=== PATIENT | male | born 1950 | race Two or more races ===

== ENCOUNTER → 2022-05-11 | Outpatient (CLI) | payer BC ==
[~2022-05-11] VITALS: Ht 175.3 cm; Wt 106.6 kg
[~2022-05-11] MED LIST: ATEN-60 PO; BUDE1AER6 IN; CHOL20004 PO; CINN500T PO; ESCI10TA PO; EZET10TA22 PO; FURO20TA3 PO; GABA300C10 PO; LOSA25TA38 PO; MELO1TAB73 PO; OMEG100078 PO; ROSU40TA PO; ceFAZolin 1GM/50ML 100 ML IV ONE
== END | disposition home or self-care (01) ==
LOC: SUR 08:39 → EDSTATUS 10:15
PROVIDERS: ATTEND Orthopaedic Surgery
DX: Z20.822 Contact with and (suspected) exposure to COVID-19 (principal)
CPT/HCPCS: 36600; 82805; 86850; 86900; 86901; J0690; U0003

== ENCOUNTER 2024-02-10 19:34 | Emergency (ER) | payer BC ==
[~2024-02-10] VITALS: Ht 177.8 cm; Wt 210.0 kg
[~2024-02-10 19:34] MED LIST changes: +GABA-1250 PO; -GABA300C10 PO; +LOSA-533 PO; -LOSA25TA38 PO; -MELO1TAB73 PO; +MELO7.5T7 PO; +OMEG-20 PO; -OMEG100078 PO; -ROSU40TA PO; +ROSU40TA81 PO; -ceFAZolin 1GM/50ML 100 ML IV ONE
--- NOTE | 2024-02-10 19:52 | ED.PDOC ---
Altered Mental Status HPI Comments 73-year-old male brought in by EMS presents with a chief complaint of ALOC s/p alcohol use today. Patient endorses drinking "couple beers and cristi" and had a possible unwitnessed fall at home. Patients family found patient on the floor with incontinence to urine. Patient cannot recall the events that led to him on the floor, but does remember drinking. EMS placed patient in C-collar as a precaution. Patient is answering questions appropriately. Chief Complaint: ETOH Time Seen by MD: 19:48 Reviewed Notes: Radiology Clerk Notes, Medications, Allergies Allergies: Coded Allergies: NO KNOWN ALLERGIES (Unverified , 05/09/22) Home Meds Reported Medications Ezetimibe (Zetia) 10 Mg Tab, 10 MG PO DAILY, TAB 05/09/22 Cinnamon Bark (Cinnamon) 500 Mg Tab, 1000 MG PO DAILY, #2 TAB 05/09/22 [place]-3 Fatty Acids (FISH OIL) 1,000 Mg Cap, 1000 MG PO DAILY, CAP 05/09/22 Cholecalciferol (D3) 50 Mcg Cap, 50 MCG PO DAILY, CAP 05/09/22 Dzslutjvox-Xqhjxounudijmu-[place]vau (Breztri Aerosphere 160-9-4.8 Mcg/Act) 1 Aer Aer, 2 PUFF IN BID PRN for prn, AER 05/09/22 Meloxicam (Meloxicam) 7.5 Mg Tab, 7.5 MG PO DAILY, TAB 05/09/22 Gabapentin (Gabapentin) 300 Mg Cap, 300 MG PO TID, CAP 05/09/22 Losartan Potassium (Losartan Potassium) 25 Mg Tab, 25 MG PO, #0.5 TAB 05/09/22 Escitalopram Oxalate (Lexapro) 10 Mg Tab, 10 MG PO DAILY, TAB 05/09/22 Atenolol (Atenolol) 25 Mg Tab, 25 MG PO DAILY, #0.5 TAB 05/09/22 Rosuvastatin Calcium (Crestor) 40 Mg Tab, 40 MG PO DAILY, TAB 05/09/22 Furosemide (Furosemide) 20 Mg Tab, 20 MG PO DAILY, #0.5 TAB 05/09/22 Information Source: Emergency Med Personnel Mode of Arrival: EMS Severity: Unable to Care for Self Timing: Hours Duration: Since onset Prehospital treatment: C-Collar Quality: Change in Behavior, Confusion Recent: Other (ALCOHOL USE) History of: None Past Medical History PAST MEDICAL HISTORY: CHF, HTN Surgical History: Denies all surgeries Family History Family History: Reviewed,noncontributory to illness Social History Smoker: Non-Smoker Alcohol: Heavy Drugs: Denies Drug Use Lives In: Home Constitutional: denies: chills, diaphoresis, fatigue, fever, malaise, sweats, weakness, others EENTM: denies: blurred vision, double vision, ear bleeding, ear discharge, ear drainage, ear pain, ear ringing, eye pain, eye redness, hearing loss, mouth pain, mouth swelling, nasal discharge, nose bleeding, nose congestion, nose pain, photophobia, tearing, throat pain, throat swelling, voice changes, others Respiratory: denies: cough, hemoptysis, orthopnea, SOB at rest, shortness of breath, SOB with excertion, stridor, wheezing, others Cardiovascular: denies: chest pain, dizzy spells, diaphoresis, Dyspnea on exertion, edema, irregular heart beat, left arm pain, lightheadedness, palpitations, PND, syncope, others Gastrointestinal: denies: abdomen distended, abdominal pain, blood streaked bowels, constipated, diarrhea, dysphagia, difficulty swallowing, hematemesis, melena, nausea, poor appetite, poor fluid intake, rectal bleeding, rectal pain, vomiting, others Genitourinary: denies: burning, dysuria, flank pain, frequency, hematuria, incontinence, penile discharge, penile sore, pain, testicle pain, testicle swelling, urgency, others Neurological: denies: dizziness, fainting, headache, left sided numbness, left sided weakness, numbness, paresthesia, pre-existing deficit, right sided numbness, right sided weakness, seizure, speech problems, tingling, tremors, weakness, others Musculoskeletal: denies: back pain, gout, joint pain, joint swelling, muscle pain, muscle stiffness, neck pain, others Integumetry: denies: bruises, change in color, change in hair/nails, dryness, laceration, lesions, lumps, rash, wounds, others Allergic/Immunocompromised: denies: Difficulty Healing, Frequent Infections, Hives, Itching, others Hematologic/Lymphatic: denies: anemia, blood clots, easy bleeding, easy bruising, swollen glands, others Endocrine: denies: excessive hunger, excessive sweating, excessive thirst, excessive urination, flushing, intolerance to cold, intolerance to heat, unexplained weight gain, unexplained weight loss, others Psychiatric: denies: anxiety, bipolar disorder, depression, hopeless, panic disorder, schizophrenia, sleepless, suicidal, others Unable to Obtain due to: Altered Mental Status All Other Systems: Reviewed and Negative Physical Exam General Appearance: No Apparent Distress, Normal HEENT: Normal ENT Inspection, Pharynx Normal, TMs Normal Neck: Full Range of Motion, Non-Tender, Normal, Normal Inspection Respiratory: Chest Non-Tender, Lungs Clear, No Accessory Muscle Use, No Respiratory Distress, Normal Breath Sounds Cardiovascular: No Edema, No JVD, No Murmur, No Gallop, Normal Peripheral Pulses, Regular Rate/Rhythm Breast Exam: Deferred Gastrointestinal: No Organomegaly, Non Tender, No Pulsatile Mass, Normal Bowel Sounds, Soft Genitalia: Deferred Pelvic: Deferred Rectal: Deferred Extremities: No calf tenderness, Normal capillary refill, Normal inspection, Normal range of motion, Non-tender, No pedal edema Musculoskeletal : Apperance: Normal Neurologic: Alert, packaging operator II-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 Was a procedure done?: No X-Ray, Labs, Meds, VS Vital Signs Date Time Temp Pulse Resp B/P (MAP) Pulse Ox O2 Delivery O2 Flow Rate FiO2 02/10/24 19:48 97.6 63 17 122/64 (83) 95 02/10/24 19:38 64 Lab Test 02/10/24 20:03 Range/Units Plasma/Serum Blood Alcohol 225.2 H <10 mg/dL Time of 1ST Reevaluation: 20:18 Reevaluation 1ST: Unchanged Patient Education/Counseling: Diagnosis, Treatment, Prognosis Family Education/Counseling: No Family Present Critical Care Note Critical Care Time?: No Stability Stability form required: No I personally scribed for AAKASH RICHARD MD ([email or web address]) on 02/10/24 at 19:52. Electronically submitted by Gamaliel Hugo ([email or web address]). I personally scribed for AAKASH RICHARD MD ([email or web address]) on 02/10/24 at 22:20. Electronically submitted by Gamaliel Hugo ([email or web address]). AAKASH RICHARD MD Feb 10, 2024 19:52
--- NOTE | 2024-02-10 21:26 | DVH ---
EXAM: CT CERVICAL WITHOUT CONTRAST INDICATION: fall EXAM DATE: 02/10/2024 08:36 PM COMPARISON: None TECHNIQUE: Multiple axial CT images of the cervical spine were obtained using bone algorithm. Axial a nd coronal reformatting was done. Bone and soft tissue windows were reviewed. Radiation Dose Information: CT Dose: CTDI volume is 24.12 mGy. Dose-length product is 851.36 mGy*cm Findings: There is no evidence of an acute fracture or spondylolisthesis. The vertebral body heights are well-m aintained. The craniocervical junction and dens are intact. Moderate to marked disc osteophyte comple x of C6/C7. No neuroforaminal narrowing. No spinal canal stenosis. There is flattening of the cervical lordosis. Bilateral thyroid nodules. The lung apices demonstrate no acute abnormality. The paraspinal and neck soft tissues appear within normal limits. C2-3: Normal C3-4: Normal C4-5: Normal C5-6: Normal C6-7: Severe degenerative disc disease. C7-T1: Normal Impression: 1. No evidence of an acute fracture. 2. Moderate to marked disc osteophyte complex of C6/C7. 3. Straightening of the cervical lordosis which may be positional versus muscle spasm. 4. Bilateral thyroid nodules. Recommend a nonemergent, outpatient thyroid ultrasound for further eval uation if not already performed.
--- NOTE | 2024-02-10 21:41 | DVH ---
Exam: CT HEAD WITHOUT CONTRAST History: falling Technique: [address] images through the posterior fossa and the supratentorial compart ment were acquired without contrast and imaged using soft tissue and bone algorithms. RADIATION DOSE: DLP 831.63 mGy.cm; CTDI vol 24.12 mGy. Comparison: None Findings: There is no evidence of an intracranial hemorrhage, acute large vessel infarct, mass effect, or midli ne shift. The calvarium, orbits, paranasal sinuses, sella, middle ears, and mastoids are unremarkable. The superficial soft tissues are within normal limits. Impression: 1. No acute intracranial abnormality.
--- NOTE | 2024-02-10 22:22 | ED.PDOC ---
Altered Mental Status HPI Comments 73-year-old male brought in by EMS presents with a chief complaint of ALOC s/p alcohol use today. Patient endorses drinking "couple beers and cristi" and had a possible unwitnessed fall at home. Patients family found patient on the floor with incontinence to urine. Patient cannot recall the events that led to him on the floor, but does remember drinking. EMS placed patient in C-collar as a precaution. Patient is answering questions appropriately. Chief Complaint: ETOH Time Seen by MD: 19:00 Reviewed Notes: Transportation Maintenance Supervisor Notes, Medications, Allergies Allergies: Coded Allergies: NO KNOWN ALLERGIES (Unverified , 05/09/22) Home Meds Reported Medications Ezetimibe (Zetia) 10 Mg Tab, 10 MG PO DAILY, TAB 05/09/22 Cinnamon Bark (Cinnamon) 500 Mg Tab, 1000 MG PO DAILY, #2 TAB 05/09/22 [place]-3 Fatty Acids (FISH OIL) 1,000 Mg Cap, 1000 MG PO DAILY, CAP 05/09/22 Cholecalciferol (D3) 50 Mcg Cap, 50 MCG PO DAILY, CAP 05/09/22 Y[place]xzvlcqm-[place]-Etxh (Breztri Aerosphere 160-9-4.8 Mcg/Act) 1 Aer Aer, 2 PUFF IN BID PRN for prn, AER 05/09/22 Meloxicam (Meloxicam) 7.5 Mg Tab, 7.5 MG PO DAILY, TAB 05/09/22 Gabapentin (Gabapentin) 300 Mg Cap, 300 MG PO TID, CAP 05/09/22 Losartan Potassium (Losartan Potassium) 25 Mg Tab, 25 MG PO, #0.5 TAB 05/09/22 Escitalopram Oxalate (Lexapro) 10 Mg Tab, 10 MG PO DAILY, TAB 05/09/22 Atenolol (Atenolol) 25 Mg Tab, 25 MG PO DAILY, #0.5 TAB 05/09/22 Rosuvastatin Calcium (Crestor) 40 Mg Tab, 40 MG PO DAILY, TAB 05/09/22 Furosemide (Furosemide) 20 Mg Tab, 20 MG PO DAILY, #0.5 TAB 05/09/22 Information Source: Emergency Med Personnel Mode of Arrival: EMS Severity: Moderate Timing: Hours Duration: Since onset Prehospital treatment: C-Collar Quality: Change in Behavior, Confusion Recent: Other (ALCOHOL USE) History of: None Past Medical History PAST MEDICAL HISTORY: CHF, HTN Surgical History: Denies all surgeries Family History Family History: Reviewed,noncontributory to illness Social History Smoker: Non-Smoker Alcohol: Heavy Drugs: Denies Drug Use Lives In: Home Constitutional: denies: chills, diaphoresis, fatigue, fever, malaise, sweats, weakness, others EENTM: denies: blurred vision, double vision, ear bleeding, ear discharge, ear drainage, ear pain, ear ringing, eye pain, eye redness, hearing loss, mouth pain, mouth swelling, nasal discharge, nose bleeding, nose congestion, nose pain, photophobia, tearing, throat pain, throat swelling, voice changes, others Respiratory: denies: cough, hemoptysis, orthopnea, SOB at rest, shortness of breath, SOB with excertion, stridor, wheezing, others Cardiovascular: denies: chest pain, dizzy spells, diaphoresis, Dyspnea on exertion, edema, irregular heart beat, left arm pain, lightheadedness, palpitations, PND, syncope, others Gastrointestinal: denies: abdomen distended, abdominal pain, blood streaked bowels, constipated, diarrhea, dysphagia, difficulty swallowing, hematemesis, melena, nausea, poor appetite, poor fluid intake, rectal bleeding, rectal pain, vomiting, others Genitourinary: denies: burning, dysuria, flank pain, frequency, hematuria, incontinence, penile discharge, penile sore, pain, testicle pain, testicle swelling, urgency, others Neurological: denies: dizziness, fainting, headache, left sided numbness, left sided weakness, numbness, paresthesia, pre-existing deficit, right sided numbness, right sided weakness, seizure, speech problems, tingling, tremors, weakness, others Musculoskeletal: denies: back pain, gout, joint pain, joint swelling, muscle pain, muscle stiffness, neck pain, others Integumetry: reports: wounds; denies: bruises, change in color, change in hair/nails, dryness, laceration, lesions, lumps, rash, others Allergic/Immunocompromised: denies: Difficulty Healing, Frequent Infections, Hives, Itching, others Hematologic/Lymphatic: denies: anemia, blood clots, easy bleeding, easy bruising, swollen glands, others Endocrine: denies: excessive hunger, excessive sweating, excessive thirst, excessive urination, flushing, intolerance to cold, intolerance to heat, unexplained weight gain, unexplained weight loss, others Psychiatric: denies: anxiety, bipolar disorder, depression, hopeless, panic disorder, schizophrenia, sleepless, suicidal, others Unable to Obtain due to: Altered Mental Status (S/P ALCOHOL USE) All Other Systems: Reviewed and Negative Physical Exam General Appearance: No Apparent Distress, Normal HEENT: Normal ENT Inspection, Pharynx Normal, TMs Normal Neck: Full Range of Motion, Non-Tender, Normal, Normal Inspection Respiratory: Chest Non-Tender, Lungs Clear, No Accessory Muscle Use, No Respiratory Distress, Normal Breath Sounds Cardiovascular: No Edema, No JVD, No Murmur, No Gallop, Normal Peripheral Pulses, Regular Rate/Rhythm Breast Exam: Deferred Gastrointestinal: No Organomegaly, Non Tender, No Pulsatile Mass, Normal Bowel Sounds, Soft Genitalia: Deferred Pelvic: Deferred Rectal: Deferred Extremities: No calf tenderness, Normal capillary refill, Normal inspection, Normal range of motion, Non-tender, No pedal edema, Other (RIGHT ARM DISTRAL ABRASION) Musculoskeletal : Apperance: Normal Neurologic: Alert, inside sales specialist II-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 Was a procedure done?: No Differential Diagnosis (ALOC) Differential Diagnosis: Dehydration, Hypoglycemia, Hypoxemia, Seizure, Closed Head Injury, CVA, Mass Lesion, SAH, Drug Overdose, ETOH Intoxication X-Ray, Labs, Meds, VS Vital Signs Date Time Temp Pulse Resp B/P (MAP) Pulse Ox O2 Delivery O2 Flow Rate FiO2 02/10/24 19:48 97.6 63 17 122/64 (83) 95 02/10/24 19:38 64 Lab Test 02/10/24 20:03 Range/Units Plasma/Serum Blood Alcohol 225.2 H <10 mg/dL Time of 1ST Reevaluation: 20:18 Reevaluation 1ST: Unchanged Time of 2ND Reevaluation: 22:34 Reevaluation 2ND: Improved (pt is alert, oriented. he is giving us his family's number to call to pick him up) Patient Education/Counseling: Diagnosis, Treatment, Prognosis, Need For Follow Up Family Education/Counseling: Diagnosis, Treatment, Prognosis, Need For Follow Up, No Family Present Additional Information i spoke to the EMS, called family to pick him up etoh level and head and c spinen ct are ordered and results reviewed. i concur with radiology regarding the ct readings i communicate with medical personnel regarding treatments and results pt has been alert, oriented and with negative CTs, he is stable for discharge, with a diagnosis of etoh abuse. pt likely was intoxicated and passed out, but sustained no injuries Departure 1 Departure Time of Disposition: 20:18 Impression: Primary Impression: Alcohol abuse Additional Impression: Falling Disposition: HOME / SELF CARE / HOMELESS Condition: Good Discharged With: Relative Critical Care Note Critical Care Time?: Yes (45 min-critical care time only) Critical care comment: due to concerns for patient's condition suddenly deteriorating, the care required my highest level of attention and readiness to intervene. i assessed her condition, ordered the proper tests and treatments, communicated with medica l personnel and consultants, and reassessed her. i reviewed her test results, past medical records, assessed her for responsiveness and stability, and formulated a treatment plan. total critical care time does not include any procedures Stability Stability form required: No I personally scribed for SANTO CHRISTENSEN MD ([email or web address]) on 02/10/24 at 22:22. Electronically submitted by Gamaliel Hugo [email or web address]). SANTO CHRISTENSEN MD Feb 10, 2024 22:22
[2024-02-10 22:40] VITALS: BP 123/54; PULSE 76; RESP 17; TEMP 98.2; O2SAT 91
--- NOTE | 2024-02-18 15:08 | ECG ---
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
== END 2024-02-10 22:48 | disposition home or self-care (01) ==
LOC: EDBD 19:34 → ER 19:34
DX: F10.10 Alcohol abuse, uncomplicated (principal); I11.0 Hypertensive heart disease with heart failure; I50.9 Heart failure, unspecified; Z79.1 Long term (current) use of non-steroidal anti-inflammatories (NSAID); Z79.899 Other long term (current) drug therapy; W01.0XXA Fall on same level from slipping, tripping and stumbling without subsequent striking against object, initial encounter; Y93.89 Activity, other specified; Y92.098 Other place in other non-institutional residence as the place of occurrence of the external cause; Y99.8 Other external cause status
CPT/HCPCS: 36415; 70450; 72125; 80320; 93005